=== PATIENT | female | born 1980 | race American Indian/Alaskan Native ===

== ENCOUNTER 2017-09-25 13:42 | Emergency (ER) | payer SELFPAY ==
[2017-09-25 13:53] VITALS: BP 122/70
== END 2017-09-25 16:45 | disposition left against medical advice (07) ==
LOC: ED 13:42
DX: R51 Headache (principal); J00 Acute nasopharyngitis [common cold]; Z53.21 Procedure and treatment not carried out due to patient leaving prior to being seen by health care provider